=== PATIENT | female | born 1950 | race Caucasian/White ===

== ENCOUNTER → 2018-04-13 09:00 | Outpatient (CLI) | payer MEDICARE, SELFPAY | PROVIDERS: PCP Emergency Medicine; Visit Provider Orthopaedic Surgery | DX: S89.202A Unspecified physeal fracture of upper end of left fibula, initial encounter for closed fracture (principal); W10.8XXA Fall (on) (from) other stairs and steps, initial encounter | CPT/HCPCS: 99214 ==

== ENCOUNTER 2019-10-05 02:23 | Outpatient (CLI) | payer MEDICARE, SELFPAY ==
--- NOTE | 2019-10-05 13:02 | DI.MAMMO_ITS ---
EXAM: MG MAMMO SCREENING CLINICAL HISTORY: SCREENING, Z12.31. TECHNIQUE: Bilateral full field digital CC and MLO mammographic images were obtained with 3D tomosyn thesis and utilizing computer aided detection (CAD). COMPARISON: Available for comparison. FINDINGS: Masses/Architectural Distortion: None seen. Microcalcifications: No suspicious pleomorphic-type are seen. Skin Thickening/Nipple Retraction: None. IMPRESSION: 1. No significant interval change with no specific features of malignancy noted. 2. Unless there is more urgent need, screening mammography is recommended, as per [employer] guidelines. ACR BI-RAD Category- 1 Negative Breast Density - Category B - Scattered areas of fibroglandular density A negative radiographic report should not delay biopsy if a dominant or clinically suspicious mass is present. Up to ten percent of cancers are not identified on mammography. A negative report may reinforce clinical impression. Adenosis and dense breasts may obscure an underlying neoplasm. False positive reports average 6 to 10%. Patient will receive a letter notifying them of these results.
== END 2019-10-05 02:43 ==
PROVIDERS: PCP Emergency Medicine; Visit Provider Emergency Medicine
DX: Z12.31 Encounter for screening mammogram for malignant neoplasm of breast (principal)
CPT/HCPCS: 77063; 77067

== ENCOUNTER 2022-02-18 00:54 | Outpatient (CLI) | payer MEDICARE, SELFPAY ==
[2022-02-18 13:32] LABS: Anion Gap 6.4 mmol/L (3-11); BUN 16 mg/dL (7-18); CO2 31.6 mmol/L (21.0-32.0); CREATININE 0.6 mg/dL (0.55-1.02); Calcium 9.2 mg/dL (8.5-10.1); Calculated LDL 122 mg/dL (<100); Chloride 104 mmol/L (98-107); Cholesterol 214 mg/dL (<200); Glucose 141 mg/dL (74-106); HDL Cholesterol 59 mg/dL (40-60); Potassium 4.1 mmol/L (3.5-5.1); Sodium 142 mmol/L (136-145); Triglyceride 165 mg/dL (<150)
[2022-02-19 09:47] LABS: Hepatitis C Ab w Rflx HCV PCR Negative (Negative)
== END 2022-02-18 00:55 | disposition home or self-care (01) ==
LOC: LOS 00:54
PROVIDERS: PCP Family Medicine; Visit Provider Family Medicine
DX: I10 Essential (primary) hypertension (principal); Z11.59 Encounter for screening for other viral diseases; Z00.00 Encounter for general adult medical examination without abnormal findings
CPT/HCPCS: 36415; 80048; 80061; 86803

== ENCOUNTER → 2022-02-20 02:35 | Outpatient (CLI) | payer MEDICARE, SELFPAY ==
--- NOTE | 2022-02-20 09:19 | DI.MAMMO_ITS ---
Exam(s) MAMMO SCREENING EXAM: MAMMO SCREENING CLINICAL HISTORY: screening, Z12.39 TECHNIQUE: Mammograms were interpreted according to the usual protocol including computer analysis w [employer] CAD system, tomosynthesis and C-view imaging. COMPARISON: 2011 through 2019 FINDINGS: The breasts are composed of scattered fibroglandular densities, Breast Density category B. No suspicious masses or suspicious microcalcifications are seen. No skin thickening or abnormal axillary lymph nodes are seen. There has been no significant change from prior exams. IMPRESSION: BI-RADS Category 1, Negative mammogram Yearly screening mammography is recommended. Breast Density - Category B, scattered fibroglandular densities. A negative radiographic report should not delay biopsy if a dominant or clinically suspicious mass is present. Up to ten percent of cancers are not identified on mammography. A negative report may reinforce clinical impression. Adenosis and dense breasts may obscure an underlying neoplasm. False positive reports average 6 to 10%. Patient will receive a letter notifying them of these results.
== END ==
PROVIDERS: PCP Family Medicine; Visit Provider Family Medicine
DX: Z12.31 Encounter for screening mammogram for malignant neoplasm of breast (principal)
CPT/HCPCS: 77063; 77067

== ENCOUNTER → 2022-02-28 10:16 | Outpatient (BNVA) | payer MEDICARE, SELFPAY | PROVIDERS: PCP Family Medicine; Referring Provider Family Medicine; Visit Provider Physical Therapy Assistant | DX: I10 Essential (primary) hypertension (principal); L98.9 Disorder of the skin and subcutaneous tissue, unspecified | CPT/HCPCS: 99202 ==

== ENCOUNTER 2022-03-06 03:59 | Outpatient (CLI) | payer MEDICARE, SELFPAY ==
[2022-03-06 13:47] LABS: Hemoglobin A1C 5.8 % (<5.7)
== END 2022-03-06 04:00 | disposition home or self-care (01) ==
LOC: LOS 04:00
PROVIDERS: PCP Family Medicine; Visit Provider Family Medicine
DX: R73.01 Impaired fasting glucose (principal)
CPT/HCPCS: 36415; 83036

== ENCOUNTER → 2022-04-17 09:45 | Outpatient (BNVA) | payer MEDICARE, SELFPAY | PROVIDERS: PCP Family Medicine; Referring Provider Family Medicine; Visit Provider Surgery | DX: L72.8 Other follicular cysts of the skin and subcutaneous tissue (principal) | CPT/HCPCS: 11422; 99212 ==

== ENCOUNTER 2022-04-17 12:28 | Outpatient (REF) | payer MEDICARE, SELFPAY ==
--- NOTE | 2022-04-17 10:15 | SKI_PTH ---
PATIENT: Steph Bruner LOC: [facility]#:[id number] AGE/SX: 72/F ROOM: RE04/17/[address]: Danica Choudhary : 1950 BED: DIS: 04/17/2022 SPEC #: [id number] RECD: 04/17/22 13:03 STATUS: JOSE REQ #: [id number] ISA: 04/17/22 10:[address]: Danica Choudhary DEPT: Surgical Specimen RECD BY: Anjana Albarado ENTERED: 04/17/22 13:03 SP TYPE: FERNANDO GUTIERREZ DR: Jackelin Valdovinos Tissues: 1 - SKIN BIOPSY(SHAVE/PUNCH) Procedures: GROSS AND MICRO LEVEL 3 Comments: [id number]
== END 2022-04-17 12:29 | disposition home or self-care (01) ==
LOC: NCHCN 12:28
PROVIDERS: PCP Family Medicine; Visit Provider Surgery
DX: L72.8 Other follicular cysts of the skin and subcutaneous tissue (principal)
CPT/HCPCS: 88304; 88305

== ENCOUNTER → 2022-05-01 10:22 | Outpatient (BNVA) | payer MEDICARE, SELFPAY | PROVIDERS: PCP Family Medicine; Referring Provider Family Medicine; Visit Provider Surgery | DX: L72.0 Epidermal cyst (principal) ==

== ENCOUNTER 2023-04-03 08:20 | Outpatient (CLI) | payer MEDICARE, SELFPAY ==
[2023-04-03 12:47] LABS: ALT 28 U/L (14-59); AST 19 U/L (15-37); Albumin 3.5 g/dL (3.4-5.0); Alkaline Phosphatase 109 U/L (46-116); Anion Gap 7.6 mmol/L (3-11); BUN 14 mg/dL (7-18); Bilirubin, Total 0.4 mg/dL (0.2-1.0); CO2 27.4 mmol/L (21.0-32.0); CREATININE 0.6 mg/dL (0.55-1.02); Calcium 9.1 mg/dL (8.5-10.1); Calculated LDL 57 mg/dL (<100); Chloride 106 mmol/L (98-107); Cholesterol 130 mg/dL (<200); Estimated GFR 95.31 (mL/min/1.73m2); Glucose 123 mg/dL (74-106); HDL Cholesterol 60 mg/dL (40-60); Potassium 4.5 mmol/L (3.5-5.1); Sodium 141 mmol/L (136-145); Total Protein 6.9 g/dL (6.4-8.2); Triglyceride 67 mg/dL (<150)
== END 2023-04-03 08:21 | disposition home or self-care (01) ==
PROVIDERS: PCP Family Medicine; Referring Provider Family Medicine; Visit Provider Family Medicine
DX: I10 Essential (primary) hypertension (principal); Z13.6 Encounter for screening for cardiovascular disorders; R73.09 Other abnormal glucose
CPT/HCPCS: 36415; 80053; 80061

== ENCOUNTER → 2023-05-07 03:17 | Outpatient (CLI) | payer MEDICARE, SELFPAY ==
--- NOTE | 2023-05-07 08:00 | DI.DEXA_ITS ---
Exam(s) XR DEXA BONE DENSITY W/WO ELVIRA EXAM: XR DEXA BONE DENSITY W/WO ELVIRA CLINICAL HISTORY: screening for osteoporosis, menopausal disorder, n95.9 TECHNIQUE: Routine DEXA evaluation of the lumbar spine, hip, or forearm. COMPARISON: No exams were available for comparison FINDINGS: Performed on a Hologic unit. Lateral image: No compression fracture evident. Lumbar Spine total T-score: -0.9 Hip total T-score:-2.0 Independent reading at the level of the femoral neck yields T-score of -1 Forearm total T-score: -3.2 IMPRESSION: Bone mineral density measures in the osteopenia range for the hip. Normal range for the lumbar spine , and osteoporosis range for the forearm. Fracture risk is moderate-high. Note: Any spine fracture indicates 5x risk for subsequent spine fracture and 2x risk for subsequent h ip fracture. World Health Organization criteria for BMD interpretation classify patients: Normal...... T- Score at or above -1.0 Osteopenic... T- Score between -1.0 and -2.5 Osteoporosis... T-Score at or below -2.5
== END ==
PROVIDERS: PCP Family Medicine; Visit Provider Family Medicine
DX: Z12.31 Encounter for screening mammogram for malignant neoplasm of breast (principal); N95.9 Unspecified menopausal and perimenopausal disorder
CPT/HCPCS: 77080

== ENCOUNTER 2024-05-09 01:17 | Outpatient (CLI) | payer MEDICARE, SELFPAY ==
--- NOTE | 2024-05-09 07:15 | DI.MAMMO_ITS ---
Exam(s) MAMMO SCREENING EXAM: MAMMO SCREENING CLINICAL HISTORY: screening,z12.39 TECHNIQUE: Mammograms were interpreted according to the usual protocol including computer analysis w [employer] CAD system, tomosynthesis and C-view imaging. COMPARISON: 2014 through 2021 FINDINGS: The breasts are composed of scattered fibroglandular densities, Breast Density category B. No suspicious masses or suspicious microcalcifications are seen. No skin thickening or abnormal axillary lymph nodes are seen. There has been no significant change from prior exams. IMPRESSION: BI-RADS Category 1, Negative mammogram Yearly screening mammography is recommended. Breast Density - Category B, scattered fibroglandular densities. A negative radiographic report should not delay biopsy if a dominant or clinically suspicious mass is present. Up to ten percent of cancers are not identified on mammography. A negative report may reinforce clinical impression. Adenosis and dense breasts may obscure an underlying neoplasm. False positive reports average 6 to 10%. Patient will receive a letter notifying them of these results.
== END 2024-05-09 01:37 ==
LOC: DI 01:17
PROVIDERS: PCP Family Medicine; Visit Provider Family Medicine
DX: Z12.31 Encounter for screening mammogram for malignant neoplasm of breast (principal)
CPT/HCPCS: 77063; 77067

== ENCOUNTER 2025-04-26 08:52 | Outpatient (CLI) | payer MEDICARE, SELFPAY ==
[2025-04-26 12:46] LABS: Hemoglobin A1C 5.9 % (<5.7)
[2025-04-26 12:50] LABS: ALT 22 U/L (14-59); AST 14 U/L (15-37); Albumin 3.9 g/dL (3.4-5.0); Alkaline Phosphatase 64 U/L (46-116); Anion Gap 8.9 mmol/L (3-11); BUN 6 mg/dL (7-18); Bilirubin, Total 1.0 mg/dL (0.2-1.0); CO2 28.1 mmol/L (21.0-32.0); Calcium 9.0 mg/dL (8.5-10.1); Chloride 104 mmol/L (98-107); Estimated GFR 94.13 (mL/min/1.73m2); Glucose 105 mg/dL (74-106); Potassium 3.8 mmol/L (3.5-5.1); Sodium 141 mmol/L (136-145); Total Protein 7.3 g/dL (6.4-8.2)
== END 2025-04-26 08:53 | disposition home or self-care (01) ==
PROVIDERS: PCP Family Medicine; Referring Provider Family Medicine; Visit Provider Family Medicine
DX: R73.01 Impaired fasting glucose (principal); Z00.00 Encounter for general adult medical examination without abnormal findings; I10 Essential (primary) hypertension
CPT/HCPCS: 36415; 80053; 83036

== ENCOUNTER 2025-04-27 14:15 | Outpatient (CLI) | payer MEDICARE, SELFPAY ==
--- NOTE | 2025-04-27 12:15 | DI.RAD_ITS ---
Exam(s) XR KNEE LT 3V AP,LAT,JENNIFER EXAM: XR KNEE LT 3V AP,LAT,JENNIFER CLINICAL HISTORY: bilat knee flexion limitation,m21.962. TECHNIQUE: 2D digital imaging was performed. COMPARISON: CR LEFT KNEE 3 VIEW COMPLETE from 03/23/2018 FINDINGS: 3 views The previously present (2018) oblique nondisplaced fracture in the fibular neck has healed. There are no new fractures but there are severe advanced [id number] degenerative changes in the medial compartment, further progressed from 2018, and moderate degenerative changes in the lateral compartment. There are also advanced degenerative changes in the patellofemoral compartment, also more so than previous. There is a moderate size joint effusion noted. No obvious loose intra-articular bodies. IMPRESSION: Compared to 2018 there has been significant further progression of degenerative changes in the medial and patellofemoral compartments. Also now moderate degenerative changes in the lateral compartment. Moderate size joint effusion noted. DATA REPOSITORY: RADIATION DOSE DELIVERED:
--- NOTE | 2025-04-27 12:15 | DI.RAD_ITS ---
Exam(s) XR KNEE RT 3V AP,LAT,JENNIFER EXAM: XR KNEE RT 3V AP,LAT,JENNIFER CLINICAL HISTORY: bilat knee flexion limitation,m21.961. TECHNIQUE: 2D digital imaging was performed. COMPARISON: CR RIGHT KNEE LIMITED 1 OR 2 VIEW from 11/05/2011 FINDINGS: No evidence of fracture but there is a moderate size joint effusion evident. In addition, there has been significant progression of osteoarthritic degenerative changes in the knee when compared to the 2012 images. There is almost [id number] narrowing of the medial compartment and marginal osteophytes, more so than previous. Also moderate degenerative changes in the lateral compartment, slightly further progressed from previous. There also significant degenerative changes in the patellofemoral compartment progressed from previous. No obvious loose calcified intra-articular bodies IMPRESSION: Significant progression of osteoarthritic degenerative changes in the right knee when compared to the images of October 2011. There is a moderate size joint effusion noted. This may be related to the degenerative changes but is most probably also signifies additional internal derangement. DATA REPOSITORY: RADIATION DOSE DELIVERED:
== END 2025-04-27 14:35 ==
LOC: DI 14:17
PROVIDERS: PCP Family Medicine; Visit Provider Family Medicine
DX: M21.961 Unspecified acquired deformity of right lower leg (principal); M21.962 Unspecified acquired deformity of left lower leg
CPT/HCPCS: 73562

== ENCOUNTER 2025-05-10 02:51 | Outpatient (CLI) | payer MEDICARE, SELFPAY ==
--- NOTE | 2025-05-10 08:45 | DI.MAMMO_ITS ---
Exam(s) MAMMO SCREENING EXAM: MAMMO SCREENING CLINICAL HISTORY: screening,z12.39 TECHNIQUE: Mammograms were interpreted according to the usual protocol including computer analysis with CAD system, tomosynthesis and C-view imaging. COMPARISON: 2014 through 2023 FINDINGS: The breasts are composed of scattered fibroglandular densities, Breast Density category B. No suspicious masses or suspicious microcalcifications are seen. No skin thickening or abnormal axillary lymph nodes are seen. There has been no significant change from prior exams. IMPRESSION: BI-RADS Category 1, Negative mammogram Yearly screening mammography is recommended. Breast Density - Category B - There are scattered areas of fibroglandular density. Breast density Category C or D implies that the patient has dense breast tissue. Dense breast tissue can make it harder to find cancer on a mammogram. Dense breast tissue is also associated with an increased risk of breast cancer. This information about the result of the mammogram report was provided to the patient to raise their awareness. Use this report when you speak with the patient about their risks for breast cancer, which includes their family history. At that time, you may recommend additional screening tests (Ultrasound or MRI) as these tests may add significant information. A negative radiographic report should not delay biopsy if a dominant or clinically suspicious mass is present. Up to ten percent of cancers are not identified on mammography. A negative report may reinforce clinical impression. Adenosis and dense breasts may obscure an underlying neoplasm. False positive reports average 6 to 10%. Patient will receive a letter notifying them of these results.
== END 2025-05-10 03:11 ==
LOC: DI 02:51
PROVIDERS: PCP Family Medicine; Visit Provider Family Medicine
DX: Z12.31 Encounter for screening mammogram for malignant neoplasm of breast (principal); R92.323 Mammographic fibroglandular density, bilateral breasts
CPT/HCPCS: 77063; 77067

== ENCOUNTER 2025-05-19 02:12 | Outpatient (CLI) | payer MEDICARE, SELFPAY ==
--- NOTE | 2025-05-19 08:50 | DI.MRI_ITS ---
Exam(s) MR LOWER JOINT RT WO EXAM: MR LOWER JOINT RT WO CLINICAL HISTORY: right knee limited ROM, joint effusion, OA,bilat knee deformity,m21.961,. TECHNIQUE: Multiplanar multisequence MRI was performed. COMPARISON: CR XR KNEE RT 3V AP,LAT,JENNIFER from 04/27/2025 FINDINGS: BONES: There is no fracture or contusion pattern. JOINTS: There is marked osteoarthritis of the knee involving all 3 joint compartments characterized by joint space narrowing and osteophytes. There is loss of the articular cartilage overlying the medial femoral condyle and the medial tibial plateau. There is also mild increased signal seen in the ar ticular cartilage overlying the patella. There is a small amount of fluid in the joint space. TENDONS: Extensor mechanism: Unremarkable. Medial retinaculum: Unremarkable. Lateral retinaculum: Unremarkable. Popliteus: Unremarkable. MUSCLES: Unremarkable. MENISCI: There is degeneration seen in the posterior horn of the lateral meniscus. There is marked loss of size of the body and posterior horn of the medial meniscus. SOFT TISSUES: There is a tiny popliteal cyst present. LIGAMENTS: Anterior Cruciate: There is a tear of the anterior cruciate ligament. There is no hyperintense signal seen around the ligament suggesting a chronic tear. Posterior Cruciate: Unremarkable. Medial Collateral:Unremarkable. Lateral Collateral: Unremarkable. OTHER: IMPRESSION: 1. Maceration of the body and posterior horn of the medial meniscus. 2. Degeneration of the posterior horn of the lateral meniscus. 3. Chronic ACL tear. 4. Marked osteoarthritis of the right knee. 5. Small joint effusion. 6. Tiny popliteal cyst. DATA REPOSITORY:
== END 2025-05-19 02:32 ==
LOC: DI 02:12
PROVIDERS: PCP Family Medicine; Visit Provider Family Medicine
DX: M23.51 Chronic instability of knee, right knee (principal)
CPT/HCPCS: 73721

== ENCOUNTER → 2025-08-14 10:41 | Outpatient (BNVA) | payer MEDICARE, SELFPAY | PROVIDERS: PCP Family Medicine; Referring Provider Family Medicine; Visit Provider Physician Assistant | DX: M17.0 Bilateral primary osteoarthritis of knee (principal) | CPT/HCPCS: 99213 ==